=== PATIENT | female | born 1975 | race Caucasian/White ===

== ENCOUNTER 2017-01-26 12:59 | Emergency (ER) | payer OTHER ==
[~2017-01-26] VITALS: Ht 162.6 cm; Wt 111.1 kg
[~2017-01-26 12:59] MED LIST: ATIVAN0.5 MG PO; BENADRYL25 MG PO; BUPROPION; CIPRO500 M1 PO; FLEXERIL PO; HYDROCODON-ACE1 EAC7; IBUPROFEN 600600 M1 PO; IBUPROFEN 800800 M1 PO; LISINOPRIL; LOPRESSOR25 PO; NORCO 5-325 TA1 EACH PO; PEPCID20 MG PO; PHENERGAN25 MG RE; PREDNISONE 20 M20 MG PO; PROZAC10 MG PO; ROBAXIN 750 MG750 M1 PO; SEROQUEL 50 MG50 MG PO; TRAMADOL; TRAZODONE 150150 M1 PO; WELLBUTRIN 100100 M1 NG; XANAX; ZESTRIL40 MG PO
[2017-01-26] MEDS ORDERED: XARELTO10 MG (13:17)
[2017-01-26 13:29] LABS: URINE BILIRUBIN NEGATIVE (Negative); URINE BLOOD 3+ (Negative); URINE COLOR YELLOW; URINE GLUCOSE-RANDOM* NEGATIVE (Negative); URINE KETONES NEGATIVE (Negative); URINE NITRITE NEGATIVE (Negative); URINE PROTEIN (DIPSTICK) 2+ (Negative); URINE SPECIFIC GRAVITY 1.025 (1.003-1.035); URINE UROBILINOGEN 0.2 E.U./dl (0.2-1.0)
[2017-01-26 13:42] LABS: AMORPHOUS URATES Few /LPF (None Seen); CASTS None Seen /LPF (None Seen); SQUAMOUS 0-3 Few /LPF (0-3); URINE RBC 3-10 Few /HPF (0-2); URINE WBC 0-5 Rare /HPF (0-5)
[2017-01-26 13:46] LABS: ABSOLUTE NEUTROPHILS 7.7 thou/uL (1.4-8.2); BASOPHILS 0.7 % (0.0-2.0); EOSINOPHILS 2.6 % (0.0-3.0); HEMATOCRIT 39.5 % (37.0-47.0); HEMOGLOBIN 13.4 gm/dL (12.0-15.0); LYMPHOCYTES 23.1 % (24.0-44.0); MCH 31.5 pg (26.0-34.0); MCHC 34.1 g/dL (28.0-37.0); MCV 92.4 fL (80.0-100.0); PLATELET COUNT 196 thou/uL (150-400); POLYS 68.6 % (36.0-66.0); RBC 4.27 mil/uL (4.20-5.00); RDW 13.1 % (10.5-14.5); WBC 11.2 thou/uL (4.0-11.0)
[2017-01-26 13:48] LABS: MANUAL DIFF NO
[2017-01-26 13:56] LABS: ANION GAP 9 mmol/L (7-16); BUN 25 mg/dL (7-18); CALCIUM 9.2 mg/dL (8.5-10.1); CHLORIDE 105 mmol/L (98-107); CO2 27 mmol/L (21-32); CREATININE 1.8 mg/dL (0.6-1.0); GLUCOSE 94 mg/dL (74-106); POTASSIUM 3.7 mmol/L (3.5-5.1); SODIUM 141 mmol/L (136-145)
[2017-01-26 13:59] LABS: APTT 25.6 Seconds (24.5-32.8); INR 1.1; PROTIME 10.8 Seconds (9.3-11.4)
[2017-01-26 14:00] LABS: ALBUMIN 3.1 g/dL (3.4-5.0); ALKALINE PHOSPHATASE 209 U/L (46-116); DIRECT BILIRUBIN < 0.1 mg/dL (<0.1-0.3); SGOT 32 U/L (15-37); SGPT 30 U/L (30-65); TOTAL BILIRUBIN 0.4 mg/dL (<0.1-1.0); TOTAL PROTEIN 7.6 g/dL (6.4-8.2)
[2017-01-26] MEDS ORDERED: FLOMAX0.4 MG PO (16:33)
[2017-01-26] MEDS ORDERED: MACROBID 100 M100 M1 PO (16:33)
[2017-01-26] MEDS ORDERED: NORCO 5-325 TA1 EACH PO (16:33)
[2017-01-26 16:58] VITALS: BP 145/88
== END 2017-01-26 17:01 | disposition home or self-care (01) ==
LOC: ER 12:59
PROVIDERS: Nurse Practitioner
DX: N39.0 Urinary tract infection, site not specified (principal); N20.0 Calculus of kidney; F31.9 Bipolar disorder, unspecified; F41.9 Anxiety disorder, unspecified; M41.9 Scoliosis, unspecified; I10 Essential (primary) hypertension; Z90.49 Acquired absence of other specified parts of digestive tract; Z86.718 Personal history of other venous thrombosis and embolism

== ENCOUNTER 2019-08-27 17:11 | Emergency (ER) | payer OTHER ==
[~2019-08-27] VITALS: Ht 162.6 cm; Wt 88.5 kg
[~2019-08-27 17:11] MED LIST changes: +FLOMAX0.4 MG PO; +MACROBID 100 M100 M1 PO; +XARELTO10 MG
[2019-08-27] MEDS ORDERED: LEVO-T100 MCG PO (17:27)
[2019-08-27] MEDS ORDERED: CARVEDILOL12.5 MG PO (17:27)
[2019-08-27] MEDS ORDERED: LASIX 40 MG TAB40 MG PO (17:28)
[2019-08-27] MEDS ORDERED: LATUDA20 MG PO (17:28)
[2019-08-27] MEDS ORDERED: CLONAZEPAM 0.50.5 M1 PO (17:28)
[2019-08-27 17:57] LABS: URINE BILIRUBIN NEGATIVE (Negative); URINE BLOOD NEGATIVE (Negative); URINE CLARITY CLEAR; URINE COLOR YELLOW; URINE GLUCOSE-RANDOM* NEGATIVE (Negative); URINE KETONES NEGATIVE (Negative); URINE LEUKOCYTES-REFLEX TRACE (Negative); URINE NITRITE-REFLEX NEGATIVE (Negative); URINE PROTEIN (DIPSTICK) 2+ (Negative); URINE SPECIFIC GRAVITY >= 1.030 (1.005-1.035); URINE UROBILINOGEN 0.2 E.U./dl (0.2-1.0)
[2019-08-27 18:03] LABS: SQUAMOUS >10 Many /LPF (0-3)
[2019-08-27 18:05] LABS: BACTERIA-REFLEX >30 Many /HPF (None Seen)
[2019-08-27 18:07] LABS: CASTS None Seen /LPF (None Seen); CRYSTALS None Seen /LPF (None Seen); URINE RBC 0-2 Rare /HPF (0-2); URINE WBC-REFLEX 6-15 Few /HPF (0-5)
[2019-08-27 18:36] LABS: ABSOLUTE NEUTROPHILS 6.9 thou/uL (1.4-8.2); BASOPHILS 0.4 % (0.0-2.0); EOSINOPHILS 1.1 % (0.0-3.0); HEMATOCRIT 39.7 % (37.0-47.0); HEMOGLOBIN 13.1 gm/dL (12.0-15.0); LYMPHOCYTES 23.6 % (24.0-44.0); MCH 30.6 pg (26.0-34.0); MCHC 32.9 g/dL (28.0-37.0); MONOCYTES 5.8 % (1.0-8.0); PLATELET COUNT 167 thou/uL (150-400); POLYS 69.1 % (36.0-66.0); RBC 4.27 mil/uL (4.20-5.00)
[2019-08-27 18:49] LABS: ANION GAP 6 mmol/L (7-16); BUN 35 mg/dL (7-18); CALCIUM 9.7 mg/dL (8.5-10.1); CHLORIDE 103 mmol/L (98-107); CO2 29 mmol/L (21-32); CREATININE 2.2 mg/dL (0.6-1.0); GLUCOSE 78 mg/dL (74-106); POTASSIUM 4.1 mmol/L (3.5-5.1); SODIUM 138 mmol/L (136-145)
[2019-08-27 18:56] LABS: ALBUMIN 3.3 g/dL (3.4-5.0); DIRECT BILIRUBIN < 0.1 mg/dL (<0.1-0.2); LIPASE 203 U/L (73-393); SGOT 67 U/L (15-37); SGPT 65 U/L (30-65); TOTAL BILIRUBIN 0.1 mg/dL (<0.1-1.0); TOTAL PROTEIN 7.6 g/dL (6.4-8.2)
[2019-08-27 20:20] VITALS: BP 131/76
--- NOTE | 2019-08-29 08:34 | EKG ---
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: [facility] : 1975 Requested By: Ranjith Le Order Number: [id number] MD: Mal Garzon Measurements Intervals [place] Rate: 80 P: 66 [place]: 150 QRS: 17 QRSD: 101 T: 30 QT: 384 QTc: 443 Interpretive Statements Sinus rhythm Normal tracing Compared to ECG 10/22/2010 22:40:55 Sinus tachycardia no longer present Electronically Signed On 08-29-2019 8:33:31 HHA by Mal Garzon [email or web address] <ELECTRONICALLY SIGNED> By: Mal Garzon MD, FAC 08/29/19 0833 1807 180 Mal Garzon MD, [facility] /EPI
== END 2019-08-27 20:10 | disposition home or self-care (01) ==
LOC: ER 17:11
PROVIDERS: Physician Assistant
DX: R10.33 Periumbilical pain (principal); R10.84 Generalized abdominal pain; I10 Essential (primary) hypertension; M41.9 Scoliosis, unspecified; F31.9 Bipolar disorder, unspecified; F41.9 Anxiety disorder, unspecified; Z90.49 Acquired absence of other specified parts of digestive tract; Z86.718 Personal history of other venous thrombosis and embolism; Z88.8 Allergy status to other drugs, medicaments and biological substances

== ENCOUNTER 2019-12-13 11:56 | Emergency (ER) | payer OTHER ==
[~2019-12-13] VITALS: Ht 162.6 cm; Wt 89.8 kg
[~2019-12-13 11:56] MED LIST changes: +CARVEDILOL12.5 MG PO; +CLONAZEPAM 0.50.5 M1 PO; +LASIX 40 MG TAB40 MG PO; +LATUDA20 MG PO; +LEVO-T100 MCG PO
[2019-12-13 12:58] LABS: URINE BILIRUBIN NEGATIVE (Negative); URINE BLOOD NEGATIVE (Negative); URINE CLARITY CLEAR; URINE COLOR YELLOW; URINE GLUCOSE-RANDOM* NEGATIVE (Negative); URINE KETONES NEGATIVE (Negative); URINE LEUKOCYTES-REFLEX NEGATIVE (Negative); URINE NITRITE-REFLEX NEGATIVE (Negative); URINE PROTEIN (DIPSTICK) 2+ (Negative); URINE SPECIFIC GRAVITY 1.015 (1.005-1.035); URINE UROBILINOGEN 0.2 E.U./dl (0.2-1.0)
[2019-12-13 13:11] LABS: CASTS None Seen /LPF (None Seen); CRYSTALS None Seen /LPF (None Seen); SQUAMOUS 4-10 Moderate /LPF (0-3); URINE RBC None Seen /HPF (0-2); URINE WBC-REFLEX 0-5 Rare /HPF (0-5)
[2019-12-13 15:08] LABS: ABSOLUTE NEUTROPHILS 5.2 thou/uL (1.4-8.2); BASOPHILS 0.5 % (0.0-2.0); EOSINOPHILS 1.3 % (0.0-3.0); HEMATOCRIT 37.3 % (37.0-47.0); HEMOGLOBIN 12.4 gm/dL (12.0-15.0); LYMPHOCYTES 23.5 % (24.0-44.0); MCH 31.7 pg (26.0-34.0); MCHC 33.3 g/dL (28.0-37.0); MCV 95.3 fL (80.0-100.0); MONOCYTES 6.1 % (1.0-8.0); PLATELET COUNT 157 thou/uL (150-400); POLYS 68.6 % (36.0-66.0); RBC 3.91 mil/uL (4.20-5.00); RDW 13.4 % (10.5-14.5); WBC 7.5 thou/uL (4.0-11.0)
[2019-12-13 15:30] LABS: ALBUMIN 2.6 g/dL (3.4-5.0); CALCIUM 8.3 mg/dL (8.5-10.1); CREATININE 1.7 mg/dL (0.6-1.0); TOTAL BILIRUBIN 0.2 mg/dL (0.2-1.0); TOTAL PROTEIN 5.9 g/dL (6.4-8.2)
[2019-12-13] MEDS ORDERED: CARAFATE 1 GM TA1 G1 PO (15:42)
[2019-12-13] MEDS ORDERED: OMEPRAZOLE40 MG PO (15:42)
[2019-12-13 15:49] VITALS: BP 164/101
--- NOTE | 2019-12-14 07:52 | EKG ---
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[facility] : 1975 Requested By: Kenny Nevarez Order Number: [id number] MD: Mal Garzon Measurements Intervals [place] Rate: 98 P: 63 ID: 155 QRS: 13 QRSD: 90 T: 42 QT: 352 QTc: 450 Interpretive Statements Sinus rhythm No significant abnormality Compared to ECG 08/27/2019 18:07:35 Low QRS voltage now present Electronically Signed On 12-14-2019 7:51:33 CDT by Mal Garzon [email or web address] <ELECTRONICALLY SIGNED> By: Mal Garzon MD, FACC 12/14/19 0751 1215 1215 Mal Garzon MD, [facility] /EPI
--- NOTE | 2019-12-14 08:14 | EKG ---
[facility] [place] [address] ELECTROCARDIOGRAM REPORT Name: BARBARA PURI Room #: [facility]#: [id number] Admission: 12/13/19 Attend Phys: Discharge: 12/13/19 Date of : 71 Report #: [id number] THIS REPORT FOR: cc: GIORGIO - Bess family physician/PCP GIORGIO - No family physician/PCP Mal Garzon MD [facility] THIS REPORT FOR: //name// 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
== END 2019-12-13 15:55 | disposition home or self-care (01) ==
LOC: ER 11:56
PROVIDERS: Physician Assistant
DX: K29.70 Gastritis, unspecified, without bleeding (principal); R42 Dizziness and giddiness; R10.13 Epigastric pain; I10 Essential (primary) hypertension; J45.909 Unspecified asthma, uncomplicated; Z91.041 Radiographic dye allergy status; Z88.6 Allergy status to analgesic agent; Z79.899 Other long term (current) drug therapy; Z90.49 Acquired absence of other specified parts of digestive tract; Z86.718 Personal history of other venous thrombosis and embolism

== ENCOUNTER 2020-01-01 16:06 | Emergency (ER) | payer OTHER ==
[~2020-01-01] VITALS: Ht 162.6 cm; Wt 90.7 kg
[~2020-01-01 16:06] MED LIST changes: +CARAFATE 1 GM TA1 G1 PO; +OMEPRAZOLE40 MG PO
[2020-01-01] MEDS ORDERED: LORAZEPAM 1 MG T1 MG PO (16:19)
[2020-01-01] MEDS ORDERED: NORCO 7.5-3251 EACH PO (16:45)
[2020-01-01] MEDS ORDERED: ONDANSETRON HCL4 M2 PO (16:45)
[2020-01-01 17:13] VITALS: BP 150/111
== END 2020-01-01 17:14 | disposition home or self-care (01) ==
LOC: ER 16:06
DX: K08.89 Other specified disorders of teeth and supporting structures (principal); K03.81 Cracked tooth; R11.2 Nausea with vomiting, unspecified; F31.9 Bipolar disorder, unspecified; F41.9 Anxiety disorder, unspecified; I10 Essential (primary) hypertension; Z90.49 Acquired absence of other specified parts of digestive tract; Z86.718 Personal history of other venous thrombosis and embolism; Z79.899 Other long term (current) drug therapy; Z91.041 Radiographic dye allergy status; Z88.8 Allergy status to other drugs, medicaments and biological substances; Z98.84 Bariatric surgery status

== ENCOUNTER 2020-02-12 15:14 | Emergency (ER) | payer OTHER ==
[~2020-02-12] VITALS: Ht 162.6 cm; Wt 94.3 kg
[~2020-02-12 15:14] MED LIST changes: +LORAZEPAM 1 MG T1 MG PO; +NORCO 7.5-3251 EACH PO; +ONDANSETRON HCL4 M2 PO
[2020-02-12] MEDS ORDERED: CYCLOBENZAPRINE5 MG PO (17:09)
[2020-02-12] MEDS ORDERED: NORCO 5-325 TA1 EAC2 PO (17:09)
[2020-02-12 17:23] VITALS: BP 122/83
--- NOTE | 2020-02-13 08:45 | EKG ---
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: [facility] : 1975 Requested By: Gia Park Order Number: [id number] MD: Mal Garzon Measurements Intervals [place] Rate: 84 P: 65 [place]: 156 QRS: 16 QRSD: 85 T: 49 QT: 357 QTc: 422 Interpretive Statements Sinus rhythm No significant abnormality Compared to ECG 12/13/2019 14:17:52 No significant change was found Electronically Signed On 02-13-2020 8:44:51 CDT by Mal Garzon [email or web address] <ELECTRONICALLY SIGNED> By: Mal Garzon MD, [facility] 02/13/20 0844 1536 1536 Mal Garzon MD, [facility] /EPI
== END 2020-02-12 17:24 | disposition home or self-care (01) ==
LOC: ER 15:14
DX: M54.12 Radiculopathy, cervical region (principal); M54.9 Dorsalgia, unspecified; M79.605 Pain in left leg; F31.9 Bipolar disorder, unspecified; F41.9 Anxiety disorder, unspecified; I10 Essential (primary) hypertension; Z98.84 Bariatric surgery status; Z86.718 Personal history of other venous thrombosis and embolism; Z79.899 Other long term (current) drug therapy; Z91.041 Radiographic dye allergy status; Z88.8 Allergy status to other drugs, medicaments and biological substances